=== PATIENT | male | born 1990 | race Caucasian/White ===

== ENCOUNTER 2023-10-17 09:33 | Outpatient (CLI) | payer OTHER ==
--- NOTE | 2023-10-17 10:54 | MRI Report ---
PROCEDURE: Lumbar Spine WO INDICATIONS: LOW BACK PAIN TECHNIQUE: Noncontrast sagittal T1 spin echo and T2 fast echo, sagittal STIR, axial T1 and T2 fast spin echo thr ough the lumbar spine. In cases with scoliosis, additional coronal T2 fast spin echo may be performe d. COMPARISON: None. FINDINGS: Image quality: Excellent. Alignment and Curvature: There is normal bony alignment. Bone Marrow: Marrow is of normal overall signal. No acute vertebral body compression fractures. Spinal Cord: Conus medullaris terminates at the L1 level. Visualized cord demonstrates normal signa l and size. Paraspinous Soft Tissues: No paravertebral masses. T12-L1: Normal in appearance. L1-L2: Normal in appearance. L2-L3: Normal in appearance. L3-L4: Normal in appearance. L4-L5: Disc desiccation and mild height loss. Central disc protrusion resulting in mild to moderate central canal stenosis. Facet arthropathy. No significant neuroforaminal stenosis. L5-S1: Facet arthropathy. No central canal or neuroforaminal stenosis. IMPRESSION: Central disc protrusion at L4-L5 resulting in mild to moderate central canal stenosis. No significant neural foraminal stenosis. Reviewed by: Juan Reece MD on 10/17/2023 10:52 AM PST Approved by: Juan Reece MD on 10/17/2023 10:52 AM PST Station ID: [id number]
== END 2023-10-17 09:34 | disposition home or self-care (01) ==
LOC: DI 09:33
DX: M51.36 Other intervertebral disc degeneration, lumbar region (principal); M48.061 Spinal stenosis, lumbar region without neurogenic claudication; M47.816 Spondylosis without myelopathy or radiculopathy, lumbar region; M47.817 Spondylosis without myelopathy or radiculopathy, lumbosacral region; M51.26 Other intervertebral disc displacement, lumbar region

== ENCOUNTER 2023-10-17 09:50 | Outpatient (CLI) | payer OTHER | END 2023-10-17 09:51 | disposition home or self-care (01) | LOC: DI 09:50 | PROVIDERS: ATTEND Orthopaedic Surgery | DX: Z53.9 Procedure and treatment not carried out, unspecified reason (principal) ==